=== PATIENT | male | born 1935 | race Hispanic/Latino ===

== ENCOUNTER 2018-10-18 19:14 | Inpatient (IN) | payer MEDICARE ==
--- NOTE | 2018-10-18 19:30 | Emergency Department Report ---
Blank Doc - Documentation Documentation: This is a 83-year-old male that presents with generalized weakness with confus ion x6-8 months. Denies facial drooping or one sided weakness. This initial assessment diagnostic orders/clinical plan/treatment(s) is/are subject to change based on patient's health status, clinical progression and re- assessment by fellow clinical providers in the ED. Further treatment and workup at subsequent clinical providers discretion. Patient/guardians urged not to elope from ED s their condition may be serious if not clinically assessed and managed. Initial orders include: 1-Patient sent to MAIN for further evaluation and treatment 2- labs 3- CT head 4- UA
[2018-10-18 20:13] LABS: Bacteria,Urine 4+ /HPF (Negative); Bilirubin,Urine NEG (Negative); Blood,Urine MOD (Negative); Color,Urine Amber (Yellow); Mucus,Urine 2+ /HPF
--- NOTE | 2018-10-18 20:32 | Cat Scan Report ---
FINAL REPORT PROCEDURE: CT HEAD/BRAIN WO CON TECHNIQUE: Computerized tomography of the head was performed without contrast material. HISTORY: Stroke symptoms COMPARISON: No prior studies are available for comparison. FINDINGS: Skull and scalp: Normal. Paranasal sinuses: Bilateral paranasal sinuses are clear. There is partial opacification of right mas toid air cells.. Ventricles and subarachnoid spaces: Are prominent. Ventricular prominence is out of proportion to the sulcal prominence.. Cerebrum: Moderate degree bilateral cerebral nonspecific white matter hypodensity is noted most likel y representing chronic microangiopathy. No acute intra-axial or extra-axial hemorrhage or mass effect is noted.. Cerebellum and brainstem: No evidence of hemorrhage, acute infarction or mass. Vasculature: Atherosclerotic calcification is noted involving internal carotid and vertebral arteries .. Comments: None. IMPRESSION: Ventricular prominence is out of proportion to the sulcal prominence. Normal pressure hydrocephalus c annot be excluded. Right mastoiditis
[2018-10-18 20:34] LABS: Basophils # (Auto) 0.1 K/mm3 (0.0-0.1); Basophils % (Auto) 0.8 % (0.0-1.8); Eosinophils # (Auto) 0.1 K/mm3 (0.0-0.4); Eosinophils % (Auto) 1.3 % (0.0-4.3); Hematocrit 37.9 % (35.5-45.6); Hemoglobin 12.9 gm/dl (11.8-15.2); Lymphocytes # (Auto) 1.3 K/mm3 (1.2-5.4); Lymphocytes % (Auto) 16.2 % (13.4-35.0); Mean Corpuscular HGB Conc 34 % (32-34); Mean Corpuscular Volume 89 fl (84-94); Monocytes # (Auto) 0.7 K/mm3 (0.0-0.8); Monocytes % (Auto) 8.9 % (0.0-7.3); Platelet Count 250 K/mm3 (140-440); Red Blood Count 4.24 M/mm3 (3.65-5.03); Red Cell Distribution Width 14.5 % (13.2-15.2)
[2018-10-18 20:45] LABS: INR 1.02 (0.87-1.13); Partial Thromboplastin Time 28.7 Sec. (24.2-36.6)
[2018-10-18 20:46] LABS: Thrombin Time 15.3 Sec. (15.1-19.6)
[2018-10-18 20:56] LABS: Creatine Kinase MB 1.4 ng/mL (0.0-4.0)
[2018-10-18 20:58] LABS: Alanine Aminotransferase 9 units/L (7-56); Albumin 4.1 g/dL (3.9-5); BUN/Creatinine Ratio 19; Blood Urea Nitrogen 32 mg/dL (9-20); Calcium 9.3 mg/dL (8.4-10.2); Hemolysis Index 6
--- NOTE | 2018-10-18 21:15 | Emergency Department Report ---
ED Neuro Deficit HPI - General Chief Complaint: Neuro Symptoms/Deficit Stated Complaint: NEURO ISSUES Time Seen by Provider: 10/18/18 19:27 Source: patient, family Mode of arrival: Wheelchair Limitations: Altered Mental Status - History of Present Illness Initial Comments: Patient is a 83 years old male with history of hypertension, diabetes and chronic kidney disease. Patient presented to the ER accompanied by his after he saw Dr. Latham today and he was diagnosed with UTI. Patient stated that patient is being confused for the last 4 days but his symptoms actually started in June of last year with dementia, weakness and urinary in continence and symptoms progressively getting worse. Patient denied any unilateral or focal weakness, numbness or tingling sensation. Patient denied any chest pain or shortness of breath. He reports chills. -: days(s) Location: other (weakness, confusion) Presenting Symptoms: Present: Altered Mental Status - Related Data Allergies/Adverse Reactions: Allergies Allergy/AdvReac Type Severity Reaction Status Date / Time No Known Allergies Allergy Verified 10/18/18 19:21 ED Review of Systems ROS: Stated complaint: NEURO ISSUES Other details as noted in HPI Comment: All other systems reviewed and negative Constitutional: denies: chills, fever Respiratory: denies: cough, orthopnea, shortness of breath, SOB with exertion, SOB at rest Cardiovascular: denies: chest pain, palpitations Gastrointestinal: denies: abdominal pain, nausea, vomiting, diarrhea, constipation, hematemesis, melena, hematochezia Musculoskeletal: denies: back pain Neurological: weakness, confusion, abnormal gait. denies: headache, numbness, paresthesias, vertigo, other ED Past Medical Hx - Past Medical History Hx Hypertension: Yes Hx Diabetes: Yes Hx Renal Disease: Yes (stage III) Additional medical history: enlarged prostate- indwelling cath - Surgical History Additional Surgical History: TURP,back, Tonsillectomy - Social History Smoking Status: Unknown if ever smoked Substance Use Type: None ED Neuro Physical Exam - General Limitations: Altered Mental Status General appearance: alert Suspected Stroke: Yes - Head Head exam: Present: atraumatic, normocephalic, normal inspection - Eye Eye exam: Present: normal appearance, PERRL - ENT ENT exam: Present: normal exam, normal orophraynx, mucous membranes moist - Neck Neck exam: Present: normal inspection, full ROM. Absent: tenderness, meningismus, lymphadenopathy, thyromegaly - Respiratory Respiratory exam: Present: normal lung sounds bilaterally. Absent: respiratory distress, wheezes, rales, rhonchi - Cardiovascular Cardiovascular Exam: Present: tachycardia - GI/Abdominal GI/Abdominal exam: Present: soft, normal bowel sounds. Absent: distended, tenderness, guarding, rebound, rigid - Extremities Exam Extremities exam: Present: normal inspection, full ROM, normal capillary refill. Absent: pedal edema, calf tenderness - Back Exam Back exam: Present: normal inspection, full ROM. Absent: CVA tenderness (R), CVA tenderness (L) - Neurological Exam Neurological exam: Present: alert, oriented X3, CN II-XII intact, abnormal gait - NIHSS Assessment Interval: Baseline 1a. Level of Consciousness: alert/keenly responsive 1b. LOC Questions: answers both correctly 1c. LOC Commands: performs tasks correctly 2. Best Gaze: normal 3. Visual: no visual loss 4. Facial Palsy: normal symmetrical movement 5b. Motor Arm Right: no drift 5a. Motor Arm Left: no drift 6a. Motor Leg Left: no drift 6b. Motor Leg Right: no drift 7. Limb Ataxia: absent 8. Sensory: normal 9. Best Language: no aphasia 10. Dysarthria: normal 11. Extinction/Inattention: no abnormality Total Score: 0 Stroke Severity: No Stroke Symptoms - Psychiatric Psychiatric exam: Present: normal mood - Skin Skin exam: Present: warm, intact, normal color ED Course Vital Signs 10/18/18 10/18/18 10/18/18 19:24 19:31 21:33 Temperature 98.0 F 98 F Pulse Rate 101 H 106 H 89 Respiratory 18 18 14 Rate Blood Pressure 122/78 122/78 O2 Sat by Pulse 97 97 Oximetry 10/18/18 21:45 Temperature Pulse Rate 87 Respiratory 18 Rate Blood Pressure 176/89 O2 Sat by Pulse 95 Oximetry - Consultations Consultation #1: 10/18/18 23:20 I discussed the patient is Dr. Piper, from telemetry neurology. She advised that patient can be many H as an outpatient for the normal pressure hydrocephalus and does not need acute treatment in the hospital for that. - Lab Data Result diagrams: 10/18/18 20:17 10/18/18 20:17 Lab Results 10/18/18 10/18/18 10/18/18 Range/Units 19:39 20:17 20:17 WBC 7.7 (4.5-11.0) K/mm3 RBC 4.24 (3.65-5.03) M/mm3 Hgb 12.9 (11.8-15.2) gm/dl Hct 37.9 (35.5-45.6) % MCV 89 (84-94) fl MCH 30 (28-32) pg MCHC 34 (32-34) % RDW 14.5 (13.2-15.2) % Plt Count 250 (140-440) K/mm3 Lymph % (Auto) 16.2 (13.4-35.0) % [place] % (Auto) 8.9 H (0.0-7.3) % Eos % (Auto) 1.3 (0.0-4.3) % Baso % (Auto) 0.8 (0.0-1.8) % Lymph # 1.3 (1.2-5.4) K/mm3 [place] # 0.7 (0.0-0.8) K/mm3 Eos # 0.1 (0.0-0.4) K/mm3 Baso # 0.1 (0.0-0.1) K/mm3 Seg Neutrophils % 72.8 H (40.0-70.0) % Seg Neutrophils # 5.6 (1.8-7.7) K/mm3 PT 14.0 (12.2-14.9) Sec. INR 1.02 (0.87-1.13) APTT 28.7 (24.2-36.6) Sec. Thrombin Time 15.3 (15.1-19.6) Sec. Sodium (137-145) mmol/L Potassium (3.6-5.0) mmol/L Chloride (98-107) mmol/L Carbon Dioxide (22-30) mmol/L Anion Gap mmol/L BUN (9-20) mg/dL Creatinine (0.8-1.5) mg/dL Estimated GFR ml/min BUN/Creatinine Ratio % Glucose (75-100) mg/dL Calcium (8.4-10.2) mg/dL Total Bilirubin (0.1-1.2) mg/dL AST (5-40) units/L ALT (7-56) units/L Alkaline Phosphatase (35-129) units/L Total Creatine Kinase (55-170) units/L CK-MB (CK-2) (0.0-4.0) ng/mL CK-MB (CK-2) Rel Index (0-4) Troponin T (0.00-0.029) ng/mL Total Protein (6.3-8.2) g/dL Albumin (3.9-5) g/dL Albumin/Globulin Ratio % Urine Color Ce (Yellow) Urine Turbidity Cloudy (Clear) Urine pH 5.0 (5.0-7.0) Ur Specific [place] 1.029 (1.003-1.030) Urine Protein 100 mg/dl (Negative) mg/dL Urine Glucose (UA) >=500 (Negative) mg/dL Urine Ketones Tr (Negative) mg/dL Urine Blood Mod (Negative) Urine Nitrite Pos (Negative) Urine Bilirubin Neg (Negative) Urine Urobilinogen 2.0 (<2.0) mg/dL Ur Leukocyte Esterase Lg (Negative) Urine WBC (Auto) 179.0 H (0.0-6.0) /HPF Urine RBC (Auto) 47.0 (0.0-6.0) /HPF U Epithel Cells (Auto) 1.0 (0-13.0) /HPF Urine Bacteria (Auto) 4+ (Negative) /HPF Ur Transition Epith Cell 1 /HPF Urine Mucus 2+ /HPF 10/18/18 Range/Units 20:17 WBC (4.5-11.0) K/mm3 RBC (3.65-5.03) M/mm3 Hgb (11.8-15.2) gm/dl Hct (35.5-45.6) % MCV (84-94) fl MCH (28-32) pg MCHC (32-34) % RDW (13.2-15.2) % Plt Count (140-440) K/mm3 Lymph % (Auto) (13.4-35.0) % [place] % (Auto) (0.0-7.3) % Eos % (Auto) (0.0-4.3) % Baso % (Auto) (0.0-1.8) % Lymph # (1.2-5.4) K/mm3 [place] # (0.0-0.8) K/mm3 Eos # (0.0-0.4) K/mm3 Baso # (0.0-0.1) K/mm3 Seg Neutrophils % (40.0-70.0) % Seg Neutrophils # (1.8-7.7) K/mm3 PT (12.2-14.9) Sec. INR (0.87-1.13) APTT (24.2-36.6) Sec. Thrombin Time (15.1-19.6) Sec. Sodium 140 (137-145) mmol/L Potassium 3.8 (3.6-5.0) mmol/L Chloride 99.0 (98-107) mmol/L Carbon Dioxide 23 (22-30) mmol/L Anion Gap 22 mmol/L BUN 32 H (9-20) mg/dL Creatinine 1.7 H (0.8-1.5) mg/dL Estimated GFR 39 ml/min BUN/Creatinine Ratio 19 % Glucose 403 H (75-100) mg/dL Calcium 9.3 (8.4-10.2) mg/dL Total Bilirubin 0.40 (0.1-1.2) mg/dL AST 11 (5-40) units/L ALT 9 (7-56) units/L Alkaline Phosphatase 90 (35-129) units/L Total Creatine Kinase 48 L (55-170) units/L CK-MB (CK-2) 1.4 (0.0-4.0) ng/mL CK-MB (CK-2) Rel Index 2.9 (0-4) Troponin T < 0.010 (0.00-0.029) ng/mL Total Protein 7.2 (6.3-8.2) g/dL Albumin 4.1 (3.9-5) g/dL Albumin/Globulin Ratio 1.3 % Urine Color (Yellow) Urine Turbidity (Clear) Urine pH (5.0-7.0) Ur Specific [place] (1.003-1.030) Urine Protein (Negative) mg/dL Urine Glucose (UA) (Negative) mg/dL Urine Ketones (Negative) mg/dL Urine Blood (Negative) Urine Nitrite (Negative) Urine Bilirubin (Negative) Urine Urobilinogen (<2.0) mg/dL Ur Leukocyte Esterase (Negative) Urine WBC (Auto) (0.0-6.0) /HPF Urine RBC (Auto) (0.0-6.0) /HPF U Epithel Cells (Auto) (0-13.0) /HPF Urine Bacteria (Auto) (Negative) /HPF Ur Transition Epith Cell /HPF Urine Mucus /HPF - Radiology Data Radiology results: report reviewed Referring Physician: JOHN PATEL Patient Name: COLEEN GOMEZ JR Date of : 1935 Sex: Male Report Date: 2018-10-18 Report Status: Finalized Findings [facility] [address] [place] [address] Cat Scan Report Signed Patient: COLEEN GOMEZ JR MR#: [id number] : 1935 Acct:[id number] Age/Sex: 83 / M ADM Date: 10/18/18 Loc: ED Attending Dr: Ordering Physician: JOHN PATEL NP Date of Service: 10/18/18 Procedure(s): CT head/brain wo con Accession Number(s): [id number] cc: OJHN PATEL NP FINAL REPORT PROCEDURE: CT HEAD/BRAIN WO CON TECHNIQUE: Computerized tomography of the head was performed without contrast material. HISTORY: Stroke symptoms COMPARISON: No prior studies are available for comparison. FINDINGS: Skull and scalp: Normal. Paranasal sinuses: Bilateral paranasal sinuses are clear. There is partial opacification of right mastoid air cells.. Ventricles and subarachnoid spaces: Are prominent. Ventricular prominence is out of proportion to the sulcal prominence.. Cerebrum: Moderate degree bilateral cerebral nonspecific white matter hypodensity is noted most likely representing chronic microangiopathy. No acute intra-axial or extra-axial hemorrhage or mass effect is noted.. Cerebellum and brainstem: No evidence of hemorrhage, acute infarction or mass. Vasculature: Atherosclerotic calcification is noted involving internal carotid and vertebral arteries.. Comments: None. IMPRESSION: Ventricular prominence is out of proportion to the sulcal prominence. Normal pressure hydrocephalus cannot be excluded. Right mastoiditis Transcribed By: [facility] Dictated By: AVELINA WADSWORTH Electronically Authenticated By: AVELINA WADSWORTH Signed Date/Time: 10/18/182031 DD/ 30 TD/TT: 10/18/182030 - Medical Decision Making I discussed the patient was Dr. Ezimora, she agreed to admit the patient to medical service. Critical care attestation.: If time is entered above; I have spent that time in minutes in the direct care of this critically ill patient, excluding procedure time. ED Disposition Clinical Impression: Altered mental status, UTI (urinary tract infection), Normal pressure hydrocephalus Disposition: OP ADMIT IP TO THIS HOSP Is pt being admited?: Yes Condition: Stable Referrals: DEREK GALVEZ MD [Staff Physician] - 3-5 Days
[2018-10-18] MEDS ORDERED: LEVAQUIN 500MG/100ML 500 MG/100 ML BAG IV ONE (21:26)
[2018-10-19] MEDS ORDERED: ZOFRAN IV PRN (00:08)
[2018-10-19] MEDS ORDERED: SODIUM CHLORIDE FLUSH SYRINGE 10 ML IV PRN (00:08)
[2018-10-19] MEDS ORDERED: D50W (25GM) Syringe IV PRN (00:12)
[2018-10-19] MEDS ORDERED: NACL 0.9% 1000 ML 1,000 ML IV ONE (00:17)
[2018-10-19] MEDS ORDERED: NORMODYNE IV PRN (00:18)
--- NOTE | 2018-10-19 00:38 | History and Physical Report ---
History of Present Illness Date of examination: 10/19/18 Chief complaint: Altered mental status per report History of present illness: Patient is a 83 years old male with history of hypertension, diabetes and chronic kidney disease, who was brought to the ED by his on account of altered mental status. Patient's was not present at the time of my history taking and patient is a very poor historian. Per the ER doctor, the stated that the patient has been confused for the last 4 days. According to her, his symptoms actually started in June of last year with dementia, weakness and urinary incontinence, which are progressively getting worse. No reported history of fever, nausea, vomiting, diarrhea, falls, syncope or loss of consciousness. Patient was seen at Dr. Latham's clinic today and he was diagnosed with UTI. Sandoval catheter was also placed as well. Past History Past Medical History: diabetes, hypertension, other (CRF) Past Surgical History: Other (unknown) Social history: other (patient admits to occasional alcohol use. 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 He denies illicit drug use) Family history: other (unknown) Medications and Allergies Allergies Allergy/AdvReac Type Severity Reaction Status Date / Time No Known Allergies Allergy Verified 10/18/18 19:21 Active Meds: Active Medications Acetaminophen (Tylenol) 650 mg PO Q4H PRN PRN Reason: Pain MILD(1-3)/Fever >100.5/FARRELL Amlodipine Besylate (Norvasc) 10 mg PO DAILY [facility] Carvedilol (Coreg) 25 mg PO BID [facility] Dextrose (D50w (25gm) Syringe) 50 ml IV PRN PRN PRN Reason: Hypoglycemia Docusate Sodium (Colace) 100 mg PO BID [facility] Heparin Sodium (Porcine) (Heparin) 5,000 unit SUB-Q Q12HR SALTY Ceftriaxone Sodium (Rocephin/Ns 1 Gm/50 Ml) 1 gm in 50 mls @ 100 mls/hr IV Q24HR SALTY; Protocol Sodium Chloride (Nacl 0.45% 1000 Ml) 1,000 mls @ 100 mls/hr IV DIRECT SALTY Sodium Chloride (Nacl 0.9% 1000 Ml) 1,000 mls @ 999 mls/hr IV BOLUS ONE Stop: 10/19/18 01:17 Insulin Glargine (Lantus) 20 units SUB-Q BID [facility] Insulin Human Lispro (Humalog) 0 unit SUB-Q ACHS SALTY; Protocol Labetalol HCl (Normodyne) 10 mg IV Q6H PRN PRN Reason: Blood Pressure Ondansetron HCl (Zofran) 4 mg IV Q8H PRN PRN Reason: Nausea And Vomiting Sodium Chloride (Sodium Chloride Flush Syringe 10 Ml) 10 ml IV BID SALTY Sodium Chloride (Sodium Chloride Flush Syringe 10 Ml) 10 ml IV PRN PRN PRN Reason: LINE FLUSH Review of Systems ROS unobtainable: due to mental status (altered mental status) All systems: negative Exam - Constitutional Vitals: Temp Pulse Resp BP Pulse Ox 98 F 97 H 15 181/95 97 10/18/18 19:31 10/18/18 23:30 10/18/18 23:30 10/18/18 23:30 10/18/18 23:30 General appearance: Present: no acute distress, well-nourished - EENT Eyes: Present: PERRL, EOM intact ENT: hearing intact, clear oral mucosa - Neck Neck: Present: supple, normal ROM - Respiratory Respiratory effort: normal Respiratory: bilateral: CTA - Cardiovascular Rhythm: regular Heart Sounds: Present: S1 & S2. Absent: rub, click - Extremities Extremities: No edema Peripheral Pulses: within normal limits - Abdominal General gastrointestinal: Present: soft, non-tender, non-distended, normal bowel sounds - Integumentary Integumentary: Present: clear, warm, dry - Musculoskeletal Musculoskeletal: generalized weakness - Neurologic Neurologic: CNII-XII intact, moves all extremities Results - Labs CBC & Chem 7: 10/18/18 20:17 10/18/18 20:17 Labs: Laboratory Last Values WBC 7.7 K/mm3 (4.5-11.0) 10/18/18 20:17 RBC 4.24 M/mm3 (3.65-5.03) 10/18/18 20:17 Hgb 12.9 gm/dl (11.8-15.2) 10/18/18 20:17 Hct 37.9 % (35.5-45.6) 10/18/18 20:17 MCV 89 fl (84-94) 10/18/18 20:17 MCH 30 pg (28-32) 10/18/18 20:17 MCHC 34 % (32-34) 10/18/18 20:17 RDW 14.5 % (13.2-15.2) 10/18/18 20:17 Plt Count 250 K/mm3 (140-440) 10/18/18 20:17 Lymph % (Auto) 16.2 % (13.4-35.0) 10/18/18 20:17 [place] % (Auto) 8.9 % (0.0-7.3) H 10/18/18 20:17 Eos % (Auto) 1.3 % (0.0-4.3) 10/18/18 20:17 Baso % (Auto) 0.8 % (0.0-1.8) 10/18/18 20:17 Lymph # 1.3 K/mm3 (1.2-5.4) 10/18/18 20:17 [place] # 0.7 K/mm3 (0.0-0.8) 10/18/18 20:17 Eos # 0.1 K/mm3 (0.0-0.4) 10/18/18 20:17 Baso # 0.1 K/mm3 (0.0-0.1) 10/18/18 20:17 Seg Neutrophils % 72.8 % (40.0-70.0) H 10/18/18 20:17 Seg Neutrophils # 5.6 K/mm3 (1.8-7.7) 10/18/18 20:17 PT 14.0 Sec. (12.2-14.9) 10/18/18 20:17 INR 1.02 (0.87-1.13) 10/18/18 20:17 APTT 28.7 Sec. (24.2-36.6) 10/18/18 20:17 Thrombin Time 15.3 Sec. (15.1-19.6) 10/18/18 20:17 Sodium 140 mmol/L (137-145) 10/18/18 20:17 Potassium 3.8 mmol/L (3.6-5.0) 10/18/18 20:17 Chloride 99.0 mmol/L (98-107) 10/18/18 20:17 Carbon Dioxide 23 mmol/L (22-30) 10/18/18 20:17 Anion Gap 22 mmol/L 10/18/18 20:17 BUN 32 mg/dL (9-20) H 10/18/18 20:17 Creatinine 1.7 mg/dL (0.8-1.5) H 10/18/18 20:17 Estimated GFR 39 ml/min 10/18/18 20:17 BUN/Creatinine Ratio 19 % 10/18/18 20:17 Glucose 403 mg/dL (75-100) H 10/18/18 20:17 POC Glucose 320 (70-105) H 10/18/18 19:24 Calcium 9.3 mg/dL (8.4-10.2) 10/18/18 20:17 Total Bilirubin 0.40 mg/dL (0.1-1.2) 10/18/18 20:17 AST 11 units/L (5-40) 10/18/18 20:17 ALT 9 units/L (7-56) 10/18/18 20:17 Alkaline Phosphatase 90 units/L (35-129) 10/18/18 20:17 Total Creatine Kinase 48 units/L (55-170) L 10/18/18 20:17 CK-MB (CK-2) 1.4 ng/mL (0.0-4.0) 10/18/18 20:17 CK-MB (CK-2) Rel Index 2.9 (0-4) 10/18/18 20:17 Troponin T < 0.010 ng/mL (0.00-0.029) 10/18/18 20:17 Total Protein 7.2 g/dL (6.3-8.2) 10/18/18 20:17 Albumin 4.1 g/dL (3.9-5) 10/18/18 20:17 Albumin/Globulin Ratio 1.3 % 10/18/18 20:17 Urine Color Ce (Yellow) 10/18/18 19:39 Urine Turbidity Cloudy (Clear) 10/18/18 19:39 Urine pH 5.0 (5.0-7.0) 10/18/18 19:39 Ur Specific [place] 1.029 (1.003-1.030) 10/18/18 19:39 Urine Protein 100 mg/dl mg/dL (Negative) 10/18/18 19:39 Urine Glucose (UA) >=500 mg/dL (Negative) 10/18/18 19:39 Urine Ketones Tr mg/dL (Negative) 10/18/18 19:39 Urine Blood Mod (Negative) 10/18/18 19:39 Urine Nitrite Pos (Negative) 10/18/18 19:39 Urine Bilirubin Neg (Negative) 10/18/18 19:39 Urine Urobilinogen 2.0 mg/dL (<2.0) 10/18/18 19:39 Ur Leukocyte Esterase Lg (Negative) 10/18/18 19:39 Urine WBC (Auto) 179.0 /HPF (0.0-6.0) H 10/18/18 19:39 Urine RBC (Auto) 47.0 /HPF (0.0-6.0) 10/18/18 19:39 U Epithel Cells (Auto) 1.0 /HPF (0-13.0) 10/18/18 19:39 Urine Bacteria (Auto) 4+ /HPF (Negative) 10/18/18 19:39 Ur Transition Epith Cell 1 /HPF 10/18/18 19:39 Urine Mucus 2+ /HPF 10/18/18 19:39 Assessment and Plan Assessment and plan: Urinary tract infection -On IV antibiotic -Urine culture pending Acute metabolic encephalopathy -probably 2/2 UTI Uncontrolled hypertension -On antihypertensives, will monitor DM2 with hyperglycemia -on IV fluid, Lantus and SSI -will check hba1c level Probable normal pressure hydrocephalus per imaging -Neurology consulted CKD stage III -Creatinine level at baseline History of dementia, stable DVT prophylaxis with heparin Disposition: patient will be placed on inpatient status with plan for discharge in 2-3 days if clinically stable Time spent: 38 minutes
[2018-10-19] MEDS ORDERED: NACL 0.45% 1000 ML 1,000 ML IV SCH (01:00)
[2018-10-19] MEDS ORDERED: NORVASC ONE (01:05)
[2018-10-19] MEDS ORDERED: NACL 0.9% 1000 ML 1,000 ML ONE (01:05)
[2018-10-19] MEDS: LANTUS SUB-Q SCH ×3 (02:05→22:07)
[2018-10-19] MEDS: NORVASC PO SCH ×2 (02:13→10:15)
[2018-10-19] MEDS: COREG PO SCH ×3 (02:21→22:06)
[2018-10-19] MEDS ORDERED: COREG ONE (02:22)
[2018-10-19] MEDS: COLACE PO SCH ×2 (10:14→22:06)
[2018-10-19] MEDS: ROCEPHIN/NS 1 GM/50 ML 1 GM/50 ML BAG IV SCH (10:58)
[2018-10-19] MEDS: SODIUM CHLORIDE FLUSH SYRINGE 10 ML IV SCH ×2 (10:58→22:07)
[2018-10-19] MEDS: HEPARIN SUB-Q SCH ×2 (11:08→22:06)
[2018-10-19] MEDS: HumaLOG SUB-Q SCH ×4 (11:11→22:11)
--- NOTE | 2018-10-19 15:57 | Event Note ---
Date: 10/19/18 Patient was seen and evaluated this morning, patient's confusion resolved. She was admitted earlier if morning for the management of UTI, hydrocephalus, confusion. Neurology consulted. I ordered a repeat CT scan to evaluate for hydrocephalus. continue management per H&P.
--- NOTE | 2018-10-19 17:24 | Consultation ---
History of Present Illness Consult date: 10/19/18 Chief complaint: abnormal CT head, dementia, incontinence History of present illness: This is an 83 YO M who was admitted to the hospital for AMS. Found to have a UTI. Pt also with ? urinary retention and had hamm catheter placed. No family at bedside so most history is as per notes. Per notes says pt has been having incontinence, dementia and ataxia since June. CT shows venticriculomegaly out of proportion to sulcal prominence so NPH was entertained. Past History Past Medical History: diabetes, hypertension, other (CRF) Past Surgical History: Other (unknown) Social history: other (patient admits to occasional alcohol use. 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 He denies illicit drug use) Family history: other (unknown) Medications and Allergies Allergies Allergy/AdvReac Type Severity Reaction Status Date / Time No Known Allergies Allergy Verified 10/18/18 19:21 Home Medications Medication Instructions Recorded Confirmed Last Taken Type Donepezil 5 mg PO DAILY 10/19/18 10/19/18 Unknown History Gabapentin 300 mg PO BID 10/19/18 10/19/18 Unknown History Losartan 100 mg PO DAILY 10/19/18 10/19/18 Unknown History Ozempic 1 mg SQ 1XW 10/19/18 10/19/18 Unknown History Pioglitazone 15 mg PO DAILY 10/19/18 10/19/18 Unknown History hydrALAZINE 50 mg PO BID 10/19/18 10/19/18 Unknown History Active Meds: Active Medications Acetaminophen (Tylenol) 650 mg PO Q4H PRN PRN Reason: Pain MILD(1-3)/Fever >100.5/FARRELL Amlodipine Besylate (Norvasc) 10 mg PO DAILY [facility] Last Admin: 10/19/18 10:15 Dose: Not Given Documented by: Carvedilol (Coreg) 25 mg PO BID [facility] Last Admin: 10/19/18 10:14 Dose: Not Given Documented by: Dextrose (D50w (25gm) Syringe) 50 ml IV PRN PRN PRN Reason: Hypoglycemia Docusate Sodium (Colace) 100 mg PO BID [facility] Last Admin: 10/19/18 10:14 Dose: Not Given Documented by: Heparin Sodium (Porcine) (Heparin) 5,000 unit SUB-Q Q12HR [facility] Last Admin: 10/19/18 11:08 Dose: 5,000 unit Documented by: Ceftriaxone Sodium (Rocephin/Ns 1 Gm/50 Ml) 1 gm in 50 mls @ 100 mls/hr IV Q24HR [facility]; Protocol Last Admin: 10/19/18 10:58 Dose: 100 mls/hr Documented by: Sodium Chloride (Nacl 0.45% 1000 Ml) 1,000 mls @ 100 mls/hr IV DIRECT SALTY Insulin Glargine (Lantus) 20 units SUB-Q BID [facility] Last Admin: 10/19/18 11:10 Dose: 20 units Documented by: Insulin Human Lispro (Humalog) 0 unit SUB-Q ACHS [facility]; Protocol Last Admin: 10/19/18 16:11 Dose: 3 unit Documented by: Labetalol HCl (Normodyne) 10 mg IV Q6H PRN PRN Reason: Blood Pressure Ondansetron HCl (Zofran) 4 mg IV Q8H PRN PRN Reason: Nausea And Vomiting Sodium Chloride (Sodium Chloride Flush Syringe 10 Ml) 10 ml IV BID [facility] Last Admin: 10/19/18 10:58 Dose: 10 ml Documented by: Sodium Chloride (Sodium Chloride Flush Syringe 10 Ml) 10 ml IV PRN PRN PRN Reason: LINE FLUSH Review of Systems Neurological: ataxia Physical Examination - Vital Signs Vital Signs: Vital Signs Temp Pulse Resp BP Pulse Ox 98.0 F 101 H 18 122/78 97 10/18/18 19:24 10/18/18 19:24 10/18/18 19:24 10/18/18 19:24 10/18/18 19:24 - Constitutional General appearance: comfortable - EENT EENT: Present: PERRL, mucous membranes moist - Respiratory Respiratory: Present: lungs clear - Cardiovascular Cardiovascular: Present: regular rate Extremities: Present: no peripheral edema bilatateraly - Gastrointestinal Gastrointestinal: Present: normoactive bowel sounds - Neurologic Cranial nerve examination: PERRL, EOMI, VFF, V1/V2/V3 grossly intact, face symmetric, tongue midline Speech examination: intact Motor examination - right side: 5/5: biceps, triceps, wrist flexion, wrist extension, retinal angiographer, hip flexors, knee extensors, dorsiflexion, toe extension (EHL), plantarflexion Motor examination - left side: 5/5: biceps, triceps, wrist flexion, wrist extension, retinal angiographer, hip flexors, knee extensors, dorsiflexion, toe extension (EHL), plantarflexion Detailed sensory examination: light touch, temperature Reflexes: 1+: ankle, bicep, knee, tricep Cerebellar examination: other (FNF intact) - Psychiatric Psychiatric: Present: mood/affect appropriate - Assessment Assessment Interval: Baseline - Level of Consciousness 1a. Level of Consciousness: alert/keenly responsive - LOC Questions 1b. LOC Questions: answers both correctly - LOC Command 1c. LOC Commands: performs tasks correctly - Best Gaze 2. Best Gaze: normal - Visual 3. Visual: no visual loss - Facial Palsy 4. Facial Palsy: normal symmetrical movement - Motor Arm 5b. Motor Arm Right: no drift - Motor Leg 6a. Motor Leg Left: no drift - Limb Ataxia 7. Limb Ataxia: absent - Sensory 8. Sensory: normal - Best Language 9. Best Language: no aphasia - Dysarthria 10. Dysarthria: normal - Extinction and Inattention 11. Extinction/Inattention: no abnormality Results - Laboratory Findings CBC and BMP: 10/18/18 20:17 10/18/18 20:17 Abnormal Lab Findings: Abnormal Labs 10/18/18 10/18/18 10/18/18 19:24 19:39 20:17 [place] % (Auto) 8.9 H Seg Neutrophils % 72.8 H BUN Creatinine Glucose POC Glucose 320 H Total Creatine Kinase Urine WBC (Auto) 179.0 H 10/18/18 10/19/18 10/19/18 20:17 08:01 11:42 [place] % (Auto) Seg Neutrophils % BUN 32 H Creatinine 1.7 H Glucose 403 H POC Glucose 232 H 224 H Total Creatine Kinase 48 L Urine WBC (Auto) 10/19/18 16:45 [place] % (Auto) Seg Neutrophils % BUN Creatinine Glucose POC Glucose 225 H Total Creatine Kinase Urine WBC (Auto) - Diagnostic Findings Additional findings: CT head microangiopathic changes, ventricular prominence Assessment and Plan This is an 83 YO M with dementia, ataxia and urinary incontinence, r/o normal pressure hydrocephalus. Recommend: This is a diagnosis best pursued with outpatient work up, especially need to wait until UTI clears. Treatment for this condition would be with SLING OPERATOR shunt and he would need neurosurgical eval. Decrease in fluid tends to help gait only so if gait is not overly problematic might not be the best shunt candidate. Have patient follow up with neurology outpatient once his current issues stabilize and they can coordinate with neurosurgery to see if this patient is appropriate for treatment with shunt PT/OT eval while in house would also be helpful-eval for "magnetic gait" Continue care for all medical issues as you are doing Call with questions.
[2018-10-20] MEDS: HumaLOG SUB-Q SCH ×3 (07:20→17:07)
[2018-10-20 07:38] LABS: Basophils # (Auto) 0.1 K/mm3 (0.0-0.1); Basophils % (Auto) 1.1 % (0.0-1.8); Eosinophils # (Auto) 0.4 K/mm3 (0.0-0.4); Lymphocytes # (Auto) 1.5 K/mm3 (1.2-5.4); Lymphocytes % (Auto) 19.5 % (13.4-35.0); Mean Corpuscular HGB Conc 34 % (32-34); Mean Corpuscular Volume 89 fl (84-94); Monocytes # (Auto) 0.7 K/mm3 (0.0-0.8); Monocytes % (Auto) 9.6 % (0.0-7.3); Platelet Count 225 K/mm3 (140-440); Red Cell Distribution Width 14.3 % (13.2-15.2)
[2018-10-20 08:04] LABS: Calcium 9.3 mg/dL (8.4-10.2)
[2018-10-20] MEDS: ROCEPHIN/NS 1 GM/50 ML 1 GM/50 ML BAG IV SCH (09:23)
[2018-10-20] MEDS: HEPARIN SUB-Q SCH ×2 (09:33→22:56)
[2018-10-20] MEDS: COLACE PO SCH ×2 (09:33→22:55)
[2018-10-20] MEDS: COREG PO SCH ×2 (09:35→22:55)
[2018-10-20] MEDS: NORVASC PO SCH (09:36)
[2018-10-20] MEDS: LANTUS SUB-Q SCH ×2 (09:40→22:58)
[2018-10-20] MEDS: SODIUM CHLORIDE FLUSH SYRINGE 10 ML IV SCH (09:40)
--- NOTE | 2018-10-20 09:52 | Cat Scan Report ---
CT HEAD WITHOUT CONTRAST: HISTORY: Followup hydrocephalus. TECHNIQUE: Sequential CT images without contrast. FINDINGS: Mild prominence of the lateral and third ventricles are unchanged since 10/18/18. The fourth ventricle appears normal dimensions. Nonspecific chronic white matter changes are also stable. There is mild cortical volume loss in the temporal lobes but no advanced diffuse volume loss. No evidence for hemorrhage, mass or acute ischemia. No extra-axial fluid collection. The sinuses and left mastoid air cells are well-aerated. There is partial opacification of the right mastoid air cells. IMPRESSION: No change.
[2018-10-20] MEDS ORDERED: K-DUR PO ONE (11:45)
--- NOTE | 2018-10-20 13:04 | Magnetic Resonance Report ---
MRI BRAIN WITHOUT CONTRAST: 10/20/18 CLINICAL: Hydrocephalus. TECHNIQUE: Axial diffusion, T1, T2, gradient echo T2*, coronal and axial FLAIR and sagittal T1 sequences on a 1.5 Celeste magnet. FINDINGS: Moderate diffuse ventricular enlargement which is out of proportion to sulcal enlargement. The frontal and temporal lobe sulci are larger than the rest. No restricted diffusion. Moderate bilateral periventricular white matter hyperintensities FLAIR and T2. No mass or mass effect. No hemorrhage, edema or extra-axial collection. Normal pituitary and optic chiasm. The brainstem and cerebellum are normal. Intact vascular flow voids. Mild bilateral ethmoid sinusitis. No air-fluid levels. Right mastoid air cells are filled with fluid. No bony erosion. The orbits, and soft tissues are normal. Normal calvarium and skull base. IMPRESSION: 1. 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 2. Moderate frontotemporal cortical atrophy. 3. No evidence of acute/subacute infarct or hemorrhage. 4. Chronic right mastoiditis and mild bilateral ethmoid sinusitis.
--- NOTE | 2018-10-20 14:20 | Progress Note ---
Assessment and Plan Assessment and plan: Normal pressure hydrocephalus - Patient had confusion, ataxia and urinary incontinence - CT head showed hydrocephalus - Evaluated by neurology and recommended outpatient neurology follow-up, if the symptoms are worsened he need out patient f/u and possible arrangement for neurosurgery evaluation. Currently the symptoms are not worse and doesn't need shunt at this time. - Fluid restriction - PT evaluation UTI - Continue IV antibiotics DVT prophylaxis - On heparin Disposition - Possible discharge tomorrow History Interval history: patient was seen and evaluated this morning, patient didn't have any new complaints. Hospitalist Physical - Physical exam Narrative exam: Not in cardiopulmonary distress. The patient appeared well nourished and normally developed. Vital signs as documented. Head exam is unremarkable. No scleral icterus . Neck is without jugular venous distension, thyromegaly, or carotid bruits. Lungs are clear to auscultation. Cardiac exam reveals regular rate and Rhythm. First and second heart sounds normal. No murmurs, rubs or gallops. Abdominal exam reveals normal bowel sounds, no masses, no organomegaly and no aortic enlargement. Extremities are nonedematous and both femoral and pedal pulses are normal. 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 No focal weakness. - Constitutional Vitals: Temp Pulse Resp BP Pulse Ox 98.4 F 73 18 157/94 97 10/20/18 07:14 10/20/18 09:35 10/20/18 07:14 10/20/18 09:35 10/20/18 09:43 General appearance: Present: no acute distress, well-nourished Results - Labs CBC & Chem 7: 10/20/18 07:04 10/20/18 07:04 Labs: Laboratory Last Values WBC 7.4 K/mm3 (4.5-11.0) 10/20/18 07:04 RBC 4.30 M/mm3 (3.65-5.03) 10/20/18 07:04 Hgb 13.0 gm/dl (11.8-15.2) 10/20/18 07:04 Hct 38.0 % (35.5-45.6) 10/20/18 07:04 MCV 89 fl (84-94) 10/20/18 07:04 MCH 30 pg (28-32) 10/20/18 07:04 MCHC 34 % (32-34) 10/20/18 07:04 RDW 14.3 % (13.2-15.2) 10/20/18 07:04 Plt Count 225 K/mm3 (140-440) 10/20/18 07:04 Lymph % (Auto) 19.5 % (13.4-35.0) 10/20/18 07:04 [place] % (Auto) 9.6 % (0.0-7.3) H 10/20/18 07:04 Eos % (Auto) 5.0 % (0.0-4.3) H 10/20/18 07:04 Baso % (Auto) 1.1 % (0.0-1.8) 10/20/18 07:04 Lymph # 1.5 K/mm3 (1.2-5.4) 10/20/18 07:04 [place] # 0.7 K/mm3 (0.0-0.8) 10/20/18 07:04 Eos # 0.4 K/mm3 (0.0-0.4) 10/20/18 07:04 Baso # 0.1 K/mm3 (0.0-0.1) 10/20/18 07:04 Seg Neutrophils % 64.8 % (40.0-70.0) 10/20/18 07:04 Seg Neutrophils # 4.8 K/mm3 (1.8-7.7) 10/20/18 07:04 PT 14.0 Sec. (12.2-14.9) 10/18/18 20:17 INR 1.02 (0.87-1.13) 10/18/18 20:17 APTT 28.7 Sec. (24.2-36.6) 10/18/18 20:17 Thrombin Time 15.3 Sec. (15.1-19.6) 10/18/18 20:17 Sodium 143 mmol/L (137-145) 10/20/18 07:04 Potassium 3.2 mmol/L (3.6-5.0) L 10/20/18 07:04 Chloride 104.9 mmol/L (98-107) 10/20/18 07:04 Carbon Dioxide 23 mmol/L (22-30) 10/20/18 07:04 Anion Gap 18 mmol/L 10/20/18 07:04 BUN 30 mg/dL (9-20) H 10/20/18 07:04 Creatinine 1.5 mg/dL (0.8-1.5) 10/20/18 07:04 Estimated GFR 45 ml/min 10/20/18 07:04 BUN/Creatinine Ratio 20 % 10/20/18 07:04 Glucose 129 mg/dL (75-100) H 10/20/18 07:04 POC Glucose 194 (70-105) H 10/20/18 11:30 Hemoglobin A1c 8.0 % (4-6) H 10/20/18 07:04 Calcium 9.3 mg/dL (8.4-10.2) 10/20/18 07:04 Total Bilirubin 0.40 mg/dL (0.1-1.2) 10/18/18 20:17 AST 11 units/L (5-40) 10/18/18 20:17 ALT 9 units/L (7-56) 10/18/18 20:17 Alkaline Phosphatase 90 units/L (35-129) 10/18/18 20:17 Total Creatine Kinase 48 units/L (55-170) L 10/18/18 20:17 CK-MB (CK-2) 1.4 ng/mL (0.0-4.0) 10/18/18 20:17 CK-MB (CK-2) Rel Index 2.9 (0-4) 10/18/18 20:17 Troponin T < 0.010 ng/mL (0.00-0.029) 10/18/18 20:17 Total Protein 7.2 g/dL (6.3-8.2) 10/18/18 20:17 Albumin 4.1 g/dL (3.9-5) 10/18/18 20:17 Albumin/Globulin Ratio 1.3 % 10/18/18 20:17 Urine Color Ce (Yellow) 10/18/18 19:39 Urine Turbidity Cloudy (Clear) 10/18/18 19:39 Urine pH 5.0 (5.0-7.0) 10/18/18 19:39 Ur Specific [place] 1.029 (1.003-1.030) 10/18/18 19:39 Urine Protein 100 mg/dl mg/dL (Negative) 10/18/18 19:39 Urine Glucose (UA) >=500 mg/dL (Negative) 10/18/18 19:39 Urine Ketones Tr mg/dL (Negative) 10/18/18 19:39 Urine Blood Mod (Negative) 10/18/18 19:39 Urine Nitrite Pos (Negative) 10/18/18 19:39 Urine Bilirubin Neg (Negative) 10/18/18 19:39 Urine Urobilinogen 2.0 mg/dL (<2.0) 10/18/18 19:39 Ur Leukocyte Esterase Lg (Negative) 10/18/18 19:39 Urine WBC (Auto) 179.0 /HPF (0.0-6.0) H 10/18/18 19:39 Urine RBC (Auto) 47.0 /HPF (0.0-6.0) 10/18/18 19:39 U Epithel Cells (Auto) 1.0 /HPF (0-13.0) 10/18/18 19:39 Urine Bacteria (Auto) 4+ /HPF (Negative) 10/18/18 19:39 Ur Transition Epith Cell 1 /HPF 10/18/18 19:39 Urine Mucus 2+ /HPF 10/18/18 19:39
[2018-10-20] MEDS ORDERED: PAXIL ONE (21:50)
[2018-10-21 05:12] LABS: Calcium 8.9 mg/dL (8.4-10.2)
[2018-10-21] MEDS: HumaLOG SUB-Q SCH ×5 (05:13→23:00)
[2018-10-21] MEDS: HEPARIN SUB-Q SCH ×2 (09:38→23:00)
[2018-10-21] MEDS: NORVASC PO SCH (09:38)
[2018-10-21] MEDS: COLACE PO SCH ×2 (09:38→22:59)
[2018-10-21] MEDS: COREG PO SCH ×2 (09:38→22:59)
[2018-10-21] MEDS: ROCEPHIN/NS 1 GM/50 ML 1 GM/50 ML BAG IV SCH (09:39)
[2018-10-21] MEDS: LANTUS SUB-Q SCH ×2 (09:40→23:01)
[2018-10-21] MEDS: SODIUM CHLORIDE FLUSH SYRINGE 10 ML IV SCH ×2 (09:42→23:00)
--- NOTE | 2018-10-21 14:49 | Progress Note ---
Assessment and Plan Assessment and plan: Normal pressure hydrocephalus - Patient had confusion, ataxia and urinary incontinence - CT head showed hydrocephalus - Evaluated by neurology and recommended outpatient neurology follow-up, if the symptoms are worsened he need out patient f/u and possible arrangement for neurosurgery evaluation. Currently the symptoms are not worse and doesn't need shunt at this time. - Fluid restriction - PT evaluation UTI - Continue IV antibiotics Chronic renal failure stage 3 - Monitor - stable at baseline DVT prophylaxis - On heparin Disposition - Patient need rehab, discussed with CM and working on it. History Interval history: patient was seen and evaluated this morning, patient didn't have any new complaints. Hospitalist Physical - Physical exam Narrative exam: Not in cardiopulmonary distress. The patient appeared well nourished and normally developed. Vital signs as documented. Head exam is unremarkable. No scleral icterus . Neck is without jugular venous distension, thyromegaly, or carotid bruits. Lungs are clear to auscultation. Cardiac exam reveals regular rate and Rhythm. First and second heart sounds normal. No murmurs, rubs or gallops. Abdominal exam reveals normal bowel sounds, no masses, no organomegaly and no aortic enlargement. Extremities are nonedematous and both femoral and pedal pulses are normal. 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 No focal weakness. - Constitutional Vitals: Temp Pulse Resp BP Pulse Ox 97.3 F L 66 18 105/62 94 10/21/18 13:52 10/21/18 13:52 10/21/18 13:52 10/21/18 13:52 10/21/18 13:52 General appearance: Present: no acute distress, well-nourished Results - Labs CBC & Chem 7: 10/20/18 07:04 10/21/18 04:09 Labs: Laboratory Last Values WBC 7.4 K/mm3 (4.5-11.0) 10/20/18 07:04 RBC 4.30 M/mm3 (3.65-5.03) 10/20/18 07:04 Hgb 13.0 gm/dl (11.8-15.2) 10/20/18 07:04 Hct 38.0 % (35.5-45.6) 10/20/18 07:04 MCV 89 fl (84-94) 10/20/18 07:04 MCH 30 pg (28-32) 10/20/18 07:04 MCHC 34 % (32-34) 10/20/18 07:04 RDW 14.3 % (13.2-15.2) 10/20/18 07:04 Plt Count 225 K/mm3 (140-440) 10/20/18 07:04 Lymph % (Auto) 19.5 % (13.4-35.0) 10/20/18 07:04 [place] % (Auto) 9.6 % (0.0-7.3) H 10/20/18 07:04 Eos % (Auto) 5.0 % (0.0-4.3) H 10/20/18 07:04 Baso % (Auto) 1.1 % (0.0-1.8) 10/20/18 07:04 Lymph # 1.5 K/mm3 (1.2-5.4) 10/20/18 07:04 [place] # 0.7 K/mm3 (0.0-0.8) 10/20/18 07:04 Eos # 0.4 K/mm3 (0.0-0.4) 10/20/18 07:04 Baso # 0.1 K/mm3 (0.0-0.1) 10/20/18 07:04 Seg Neutrophils % 64.8 % (40.0-70.0) 10/20/18 07:04 Seg Neutrophils # 4.8 K/mm3 (1.8-7.7) 10/20/18 07:04 PT 14.0 Sec. (12.2-14.9) 10/18/18 20:17 INR 1.02 (0.87-1.13) 10/18/18 20:17 APTT 28.7 Sec. (24.2-36.6) 10/18/18 20:17 Thrombin Time 15.3 Sec. (15.1-19.6) 10/18/18 20:17 Sodium 144 mmol/L (137-145) 10/21/18 04:09 Potassium 3.6 mmol/L (3.6-5.0) 10/21/18 04:09 Chloride 107.6 mmol/L (98-107) H 10/21/18 04:09 Carbon Dioxide 21 mmol/L (22-30) L 10/21/18 04:09 Anion Gap 19 mmol/L 10/21/18 04:09 BUN 33 mg/dL (9-20) H 10/21/18 04:09 Creatinine 1.6 mg/dL (0.8-1.5) H 10/21/18 04:09 Estimated GFR 41 ml/min 10/21/18 04:09 BUN/Creatinine Ratio 21 % 10/21/18 04:09 Glucose 157 mg/dL (75-100) H 10/21/18 04:09 POC Glucose 144 (70-105) H 10/21/18 07:30 Hemoglobin A1c 8.0 % (4-6) H 10/20/18 07:04 Calcium 8.9 mg/dL (8.4-10.2) 10/21/18 04:09 Total Bilirubin 0.40 mg/dL (0.1-1.2) 10/18/18 20:17 AST 11 units/L (5-40) 10/18/18 20:17 ALT 9 units/L (7-56) 10/18/18 20:17 Alkaline Phosphatase 90 units/L (35-129) 10/18/18 20:17 Total Creatine Kinase 48 units/L (55-170) L 10/18/18 20:17 CK-MB (CK-2) 1.4 ng/mL (0.0-4.0) 10/18/18 20:17 CK-MB (CK-2) Rel Index 2.9 (0-4) 10/18/18 20:17 Troponin T < 0.010 ng/mL (0.00-0.029) 10/18/18 20:17 Total Protein 7.2 g/dL (6.3-8.2) 10/18/18 20:17 Albumin 4.1 g/dL (3.9-5) 10/18/18 20:17 Albumin/Globulin Ratio 1.3 % 10/18/18 20:17 Urine Color Ce (Yellow) 10/18/18 19:39 Urine Turbidity Cloudy (Clear) 10/18/18 19:39 Urine pH 5.0 (5.0-7.0) 10/18/18 19:39 Ur Specific [place] 1.029 (1.003-1.030) 10/18/18 19:39 Urine Protein 100 mg/dl mg/dL (Negative) 10/18/18 19:39 Urine Glucose (UA) >=500 mg/dL (Negative) 10/18/18 19:39 Urine Ketones Tr mg/dL (Negative) 10/18/18 19:39 Urine Blood Mod (Negative) 10/18/18 19:39 Urine Nitrite Pos (Negative) 10/18/18 19:39 Urine Bilirubin Neg (Negative) 10/18/18 19:39 Urine Urobilinogen 2.0 mg/dL (<2.0) 10/18/18 19:39 Ur Leukocyte Esterase Lg (Negative) 10/18/18 19:39 Urine WBC (Auto) 179.0 /HPF (0.0-6.0) H 10/18/18 19:39 Urine RBC (Auto) 47.0 /HPF (0.0-6.0) 10/18/18 19:39 U Epithel Cells (Auto) 1.0 /HPF (0-13.0) 10/18/18 19:39 Urine Bacteria (Auto) 4+ /HPF (Negative) 10/18/18 19:39 Ur Transition Epith Cell 1 /HPF 10/18/18 19:39 Urine Mucus 2+ /HPF 10/18/18 19:39
[2018-10-22] MEDS: HumaLOG SUB-Q SCH ×4 (07:32→23:19)
[2018-10-22] MEDS: COREG PO SCH ×2 (09:29→21:38)
[2018-10-22] MEDS: COLACE PO SCH ×2 (09:29→21:37)
[2018-10-22] MEDS: SODIUM CHLORIDE FLUSH SYRINGE 10 ML IV SCH ×2 (09:30→23:25)
[2018-10-22] MEDS: HEPARIN SUB-Q SCH ×2 (09:30→21:38)
[2018-10-22] MEDS: NORVASC PO SCH (09:30)
[2018-10-22] MEDS: ROCEPHIN/NS 1 GM/50 ML 1 GM/50 ML BAG IV SCH (09:31)
[2018-10-22] MEDS: LANTUS SUB-Q SCH ×2 (09:31→23:22)
--- NOTE | 2018-10-22 12:33 | Progress Note ---
Assessment and Plan Assessment and plan: Normal pressure hydrocephalus - Patient had confusion, ataxia and urinary incontinence - CT head showed hydrocephalus - Evaluated by neurology and recommended outpatient neurology follow-up, if the symptoms are worsened he need out patient f/u and possible arrangement for neurosurgery evaluation. Currently the symptoms are not worse and doesn't need shunt at this time. - Fluid restriction - PT evaluation Confusion is due to NPH UTI - Continue IV antibiotics Chronic renal failure stage 3 - Monitor - stable at baseline DVT prophylaxis - On heparin Disposition - Pending insurance authorization for rehabilitation placement History Interval history: patient was seen and evaluated this morning, patient didn't have any new complaints. Hospitalist Physical - Physical exam Narrative exam: Not in cardiopulmonary distress. The patient appeared well nourished and normally developed. Vital signs as documented. Head exam is unremarkable. No scleral icterus . Neck is without jugular venous distension, thyromegaly, or carotid bruits. Lungs are clear to auscultation. Cardiac exam reveals regular rate and Rhythm. First and second heart sounds normal. No murmurs, rubs or gallops. Abdominal exam reveals normal bowel sounds, no masses, no organomegaly and no aortic enlargement. Extremities are nonedematous and both femoral and pedal pulses are normal. 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 No focal weakness. - Constitutional Vitals: Temp Pulse Resp BP Pulse Ox 98.6 F 65 20 157/76 94 10/22/18 07:28 10/22/18 09:29 10/22/18 07:28 10/22/18 09:29 10/22/18 07:28 General appearance: Present: no acute distress, well-nourished Results - Labs CBC & Chem 7: 10/20/18 07:04 10/21/18 04:09 Labs: Laboratory Last Values WBC 7.4 K/mm3 (4.5-11.0) 10/20/18 07:04 RBC 4.30 M/mm3 (3.65-5.03) 10/20/18 07:04 Hgb 13.0 gm/dl (11.8-15.2) 10/20/18 07:04 Hct 38.0 % (35.5-45.6) 10/20/18 07:04 MCV 89 fl (84-94) 10/20/18 07:04 MCH 30 pg (28-32) 10/20/18 07:04 MCHC 34 % (32-34) 10/20/18 07:04 RDW 14.3 % (13.2-15.2) 10/20/18 07:04 Plt Count 225 K/mm3 (140-440) 10/20/18 07:04 Lymph % (Auto) 19.5 % (13.4-35.0) 10/20/18 07:04 [place] % (Auto) 9.6 % (0.0-7.3) H 10/20/18 07:04 Eos % (Auto) 5.0 % (0.0-4.3) H 10/20/18 07:04 Baso % (Auto) 1.1 % (0.0-1.8) 10/20/18 07:04 Lymph # 1.5 K/mm3 (1.2-5.4) 10/20/18 07:04 [place] # 0.7 K/mm3 (0.0-0.8) 10/20/18 07:04 Eos # 0.4 K/mm3 (0.0-0.4) 10/20/18 07:04 Baso # 0.1 K/mm3 (0.0-0.1) 10/20/18 07:04 Seg Neutrophils % 64.8 % (40.0-70.0) 10/20/18 07:04 Seg Neutrophils # 4.8 K/mm3 (1.8-7.7) 10/20/18 07:04 PT 14.0 Sec. (12.2-14.9) 10/18/18 20:17 INR 1.02 (0.87-1.13) 10/18/18 20:17 APTT 28.7 Sec. (24.2-36.6) 10/18/18 20:17 Thrombin Time 15.3 Sec. (15.1-19.6) 10/18/18 20:17 Sodium 144 mmol/L (137-145) 10/21/18 04:09 Potassium 3.6 mmol/L (3.6-5.0) 10/21/18 04:09 Chloride 107.6 mmol/L (98-107) H 10/21/18 04:09 Carbon Dioxide 21 mmol/L (22-30) L 10/21/18 04:09 Anion Gap 19 mmol/L 10/21/18 04:09 BUN 33 mg/dL (9-20) H 10/21/18 04:09 Creatinine 1.6 mg/dL (0.8-1.5) H 10/21/18 04:09 Estimated GFR 41 ml/min 10/21/18 04:09 BUN/Creatinine Ratio 21 % 10/21/18 04:09 Glucose 157 mg/dL (75-100) H 10/21/18 04:09 POC Glucose 204 (70-105) H 10/22/18 11:29 Hemoglobin A1c 8.0 % (4-6) H 10/20/18 07:04 Calcium 8.9 mg/dL (8.4-10.2) 10/21/18 04:09 Total Bilirubin 0.40 mg/dL (0.1-1.2) 10/18/18 20:17 AST 11 units/L (5-40) 10/18/18 20:17 ALT 9 units/L (7-56) 10/18/18 20:17 Alkaline Phosphatase 90 units/L (35-129) 10/18/18 20:17 Total Creatine Kinase 48 units/L (55-170) L 10/18/18 20:17 CK-MB (CK-2) 1.4 ng/mL (0.0-4.0) 10/18/18 20:17 CK-MB (CK-2) Rel Index 2.9 (0-4) 10/18/18 20:17 Troponin T < 0.010 ng/mL (0.00-0.029) 10/18/18 20:17 Total Protein 7.2 g/dL (6.3-8.2) 10/18/18 20:17 Albumin 4.1 g/dL (3.9-5) 10/18/18 20:17 Albumin/Globulin Ratio 1.3 % 10/18/18 20:17 Urine Color Ce (Yellow) 10/18/18 19:39 Urine Turbidity Cloudy (Clear) 10/18/18 19:39 Urine pH 5.0 (5.0-7.0) 10/18/18 19:39 Ur Specific [place] 1.029 (1.003-1.030) 10/18/18 19:39 Urine Protein 100 mg/dl mg/dL (Negative) 10/18/18 19:39 Urine Glucose (UA) >=500 mg/dL (Negative) 10/18/18 19:39 Urine Ketones Tr mg/dL (Negative) 10/18/18 19:39 Urine Blood Mod (Negative) 10/18/18 19:39 Urine Nitrite Pos (Negative) 10/18/18 19:39 Urine Bilirubin Neg (Negative) 10/18/18 19:39 Urine Urobilinogen 2.0 mg/dL (<2.0) 10/18/18 19:39 Ur Leukocyte Esterase Lg (Negative) 10/18/18 19:39 Urine WBC (Auto) 179.0 /HPF (0.0-6.0) H 10/18/18 19:39 Urine RBC (Auto) 47.0 /HPF (0.0-6.0) 10/18/18 19:39 U Epithel Cells (Auto) 1.0 /HPF (0-13.0) 10/18/18 19:39 Urine Bacteria (Auto) 4+ /HPF (Negative) 10/18/18 19:39 Ur Transition Epith Cell 1 /HPF 10/18/18 19:39 Urine Mucus 2+ /HPF 10/18/18 19:39
[2018-10-23] MEDS: HumaLOG SUB-Q SCH ×4 (07:53→22:32)
[2018-10-23] MEDS: LANTUS SUB-Q SCH ×2 (09:30→22:30)
[2018-10-23] MEDS: COREG PO SCH ×2 (09:45→22:31)
[2018-10-23] MEDS: NORVASC PO SCH (09:45)
[2018-10-23] MEDS: COLACE PO SCH ×2 (09:45→22:31)
[2018-10-23] MEDS: ROCEPHIN/NS 1 GM/50 ML 1 GM/50 ML BAG IV SCH (09:46)
[2018-10-23] MEDS: SODIUM CHLORIDE FLUSH SYRINGE 10 ML IV SCH ×2 (09:46→22:33)
[2018-10-23] MEDS: HEPARIN SUB-Q SCH ×2 (09:54→22:32)
--- NOTE | 2018-10-23 16:45 | Progress Note ---
Assessment and Plan - Patient Problems (1) Normal pressure hydrocephalus Current Visit: Yes Status: Acute Plan to address problem: Patient normal pressure hydrocephalus did not get any worse. Stable currently being evaluated for [facility]ci placement for rehabilitation to become strong in his legs with his balance. (2) UTI (urinary tract infection) Current Visit: Yes Status: Acute Plan to address problem: Continue Rocephin improving. No fever. Fever curve is coming down. Leukocytosis resolved. improved. History Interval history: Patient complains today of back pain. Patient states the pain he typically has while he is at home. Patient currently hospital for normal pressure hydrocephalus. Awaiting outpatient placement. Rehabilitation. Hospitalist Physical - Constitutional Vitals: Temp Pulse Resp BP Pulse Ox 98.2 F 65 20 108/55 97 10/23/18 13:52 10/23/18 13:52 10/23/18 13:52 10/23/18 13:52 10/23/18 13:52 General appearance: Present: no acute distress, well-nourished - EENT Eyes: Present: PERRL, EOM intact. Absent: scleral icterus, conjunctival injection, exopthalmos ENT: hearing intact, clear oral mucosa, dentition normal, no oropharyngeal erythema, no poor dentition - Neck Neck: Present: supple, normal ROM. Absent: enlarged thyroid, masses or JVD, cervical LAD - Respiratory Respiratory effort: normal Respiratory: bilateral: CTA - Cardiovascular Rhythm: regular Heart Sounds: Present: S1 & S2 - Extremities Extremities: no ischemia, pulses intact, pulses symmetrical Peripheral Pulses: within normal limits - Abdominal General gastrointestinal: soft, non-tender, non-distended - Integumentary Integumentary: Present: clear, warm, dry. Absent: jaundice, rash, clammy - Psychiatric Psychiatric: appropriate mood/affect - Neurologic Neurologic: CNII-XII intact, focal deficits Results - Labs CBC & Chem 7: 10/20/18 07:04 10/21/18 04:09 Labs: Laboratory Last Values WBC 7.4 K/mm3 (4.5-11.0) 10/20/18 07:04 RBC 4.30 M/mm3 (3.65-5.03) 10/20/18 07:04 Hgb 13.0 gm/dl (11.8-15.2) 10/20/18 07:04 Hct 38.0 % (35.5-45.6) 10/20/18 07:04 MCV 89 fl (84-94) 10/20/18 07:04 MCH 30 pg (28-32) 10/20/18 07:04 MCHC 34 % (32-34) 10/20/18 07:04 RDW 14.3 % (13.2-15.2) 10/20/18 07:04 Plt Count 225 K/mm3 (140-440) 10/20/18 07:04 Lymph % (Auto) 19.5 % (13.4-35.0) 10/20/18 07:04 [place] % (Auto) 9.6 % (0.0-7.3) H 10/20/18 07:04 Eos % (Auto) 5.0 % (0.0-4.3) H 10/20/18 07:04 Baso % (Auto) 1.1 % (0.0-1.8) 10/20/18 07:04 Lymph # 1.5 K/mm3 (1.2-5.4) 10/20/18 07:04 [place] # 0.7 K/mm3 (0.0-0.8) 10/20/18 07:04 Eos # 0.4 K/mm3 (0.0-0.4) 10/20/18 07:04 Baso # 0.1 K/mm3 (0.0-0.1) 10/20/18 07:04 Seg Neutrophils % 64.8 % (40.0-70.0) 10/20/18 07:04 Seg Neutrophils # 4.8 K/mm3 (1.8-7.7) 10/20/18 07:04 PT 14.0 Sec. (12.2-14.9) 10/18/18 20:17 INR 1.02 (0.87-1.13) 10/18/18 20:17 APTT 28.7 Sec. (24.2-36.6) 10/18/18 20:17 Thrombin Time 15.3 Sec. (15.1-19.6) 10/18/18 20:17 Sodium 144 mmol/L (137-145) 10/21/18 04:09 Potassium 3.6 mmol/L (3.6-5.0) 10/21/18 04:09 Chloride 107.6 mmol/L (98-107) H 10/21/18 04:09 Carbon Dioxide 21 mmol/L (22-30) L 10/21/18 04:09 Anion Gap 19 mmol/L 10/21/18 04:09 BUN 33 mg/dL (9-20) H 10/21/18 04:09 Creatinine 1.6 mg/dL (0.8-1.5) H 10/21/18 04:09 Estimated GFR 41 ml/min 10/21/18 04:09 BUN/Creatinine Ratio 21 % 10/21/18 04:09 Glucose 157 mg/dL (75-100) H 10/21/18 04:09 POC Glucose 197 (70-105) H 10/23/18 11:38 Hemoglobin A1c 8.0 % (4-6) H 10/20/18 07:04 Calcium 8.9 mg/dL (8.4-10.2) 10/21/18 04:09 Total Bilirubin 0.40 mg/dL (0.1-1.2) 10/18/18 20:17 AST 11 units/L (5-40) 10/18/18 20:17 ALT 9 units/L (7-56) 10/18/18 20:17 Alkaline Phosphatase 90 units/L (35-129) 10/18/18 20:17 Total Creatine Kinase 48 units/L (55-170) L 10/18/18 20:17 CK-MB (CK-2) 1.4 ng/mL (0.0-4.0) 10/18/18 20:17 CK-MB (CK-2) Rel Index 2.9 (0-4) 10/18/18 20:17 Troponin T < 0.010 ng/mL (0.00-0.029) 10/18/18 20:17 Total Protein 7.2 g/dL (6.3-8.2) 10/18/18 20:17 Albumin 4.1 g/dL (3.9-5) 10/18/18 20:17 Albumin/Globulin Ratio 1.3 % 10/18/18 20:17 Urine Color Ce (Yellow) 10/18/18 19:39 Urine Turbidity Cloudy (Clear) 10/18/18 19:39 Urine pH 5.0 (5.0-7.0) 10/18/18 19:39 Ur Specific [place] 1.029 (1.003-1.030) 10/18/18 19:39 Urine Protein 100 mg/dl mg/dL (Negative) 10/18/18 19:39 Urine Glucose (UA) >=500 mg/dL (Negative) 10/18/18 19:39 Urine Ketones Tr mg/dL (Negative) 10/18/18 19:39 Urine Blood Mod (Negative) 10/18/18 19:39 Urine Nitrite Pos (Negative) 10/18/18 19:39 Urine Bilirubin Neg (Negative) 10/18/18 19:39 Urine Urobilinogen 2.0 mg/dL (<2.0) 10/18/18 19:39 Ur Leukocyte Esterase Lg (Negative) 10/18/18 19:39 Urine WBC (Auto) 179.0 /HPF (0.0-6.0) H 10/18/18 19:39 Urine RBC (Auto) 47.0 /HPF (0.0-6.0) 10/18/18 19:39 U Epithel Cells (Auto) 1.0 /HPF (0-13.0) 10/18/18 19:39 Urine Bacteria (Auto) 4+ /HPF (Negative) 10/18/18 19:39 Ur Transition Epith Cell 1 /HPF 10/18/18 19:39 Urine Mucus 2+ /HPF 10/18/18 19:39
[2018-10-23] MEDS: TYLENOL PO PRN (16:59)
[2018-10-24] MEDS: HumaLOG SUB-Q SCH ×4 (07:30→22:57)
[2018-10-24] MEDS ORDERED: ULTRAM PO PRN (08:41)
[2018-10-24] MEDS: ROCEPHIN/NS 1 GM/50 ML 1 GM/50 ML BAG IV SCH (09:55)
[2018-10-24] MEDS: COLACE PO SCH ×2 (09:55→21:09)
[2018-10-24] MEDS: COREG PO SCH ×2 (09:56→21:10)
[2018-10-24] MEDS: NORVASC PO SCH (09:56)
[2018-10-24] MEDS: COZAAR PO SCH (09:56)
[2018-10-24] MEDS: HEPARIN SUB-Q SCH ×2 (10:02→21:35)
[2018-10-24] MEDS: LANTUS SUB-Q SCH ×2 (10:02→22:57)
[2018-10-24] MEDS: SODIUM CHLORIDE FLUSH SYRINGE 10 ML IV SCH ×2 (10:04→21:14)
--- NOTE | 2018-10-24 10:39 | Progress Note ---
Assessment and Plan - Patient Problems (1) Normal pressure hydrocephalus Current Visit: Yes Status: Acute Plan to address problem: Patient normal pressure hydrocephalus Remained stable. In fact has had some improvemen Stable currently being evaluated for [facility] placement for rehabilitation to become strong in his legs with his balance. (2) UTI (urinary tract infection) Current Visit: Yes Status: Acute Plan to address problem: Currently stable patient afebrile. Microbiology negative. Will change medications to PO. (3) Diabetes Current Visit: Yes Status: Acute Plan to address problem: Patient maintains fair control of diabetes. No acute changes this time. History Interval history: Back pain improved with medications. Patient did not ask for medications over PM Hospitalist Physical - Constitutional Vitals: Temp Pulse Resp BP Pulse Ox 97.9 F 61 16 160/73 96 10/24/18 07:27 10/24/18 09:56 10/24/18 07:27 10/24/18 09:56 10/24/18 07:27 General appearance: Present: no acute distress, well-nourished - EENT Eyes: Present: PERRL, EOM intact ENT: hearing intact, clear oral mucosa, dentition normal - Neck Neck: Present: supple, normal ROM - Respiratory Respiratory effort: normal Respiratory: bilateral: CTA - Cardiovascular Rhythm: regular - Extremities Extremities: no ischemia, pulses intact, No edema, normal temperature Peripheral Pulses: within normal limits - Abdominal General gastrointestinal: soft, non-tender, non-distended, normal bowel sounds - Integumentary Integumentary: Present: clear, warm, dry - Psychiatric Psychiatric: appropriate mood/affect, intact judgment & insight, memory intact - Neurologic Neurologic: CNII-XII intact Results - Labs CBC & Chem 7: 10/20/18 07:04 10/21/18 04:09 Labs: Laboratory Last Values WBC 7.4 K/mm3 (4.5-11.0) 10/20/18 07:04 RBC 4.30 M/mm3 (3.65-5.03) 10/20/18 07:04 Hgb 13.0 gm/dl (11.8-15.2) 10/20/18 07:04 Hct 38.0 % (35.5-45.6) 10/20/18 07:04 MCV 89 fl (84-94) 10/20/18 07:04 MCH 30 pg (28-32) 10/20/18 07:04 MCHC 34 % (32-34) 10/20/18 07:04 RDW 14.3 % (13.2-15.2) 10/20/18 07:04 Plt Count 225 K/mm3 (140-440) 10/20/18 07:04 Lymph % (Auto) 19.5 % (13.4-35.0) 10/20/18 07:04 [place] % (Auto) 9.6 % (0.0-7.3) H 10/20/18 07:04 Eos % (Auto) 5.0 % (0.0-4.3) H 10/20/18 07:04 Baso % (Auto) 1.1 % (0.0-1.8) 10/20/18 07:04 Lymph # 1.5 K/mm3 (1.2-5.4) 10/20/18 07:04 [place] # 0.7 K/mm3 (0.0-0.8) 10/20/18 07:04 Eos # 0.4 K/mm3 (0.0-0.4) 10/20/18 07:04 Baso # 0.1 K/mm3 (0.0-0.1) 10/20/18 07:04 Seg Neutrophils % 64.8 % (40.0-70.0) 10/20/18 07:04 Seg Neutrophils # 4.8 K/mm3 (1.8-7.7) 10/20/18 07:04 PT 14.0 Sec. (12.2-14.9) 10/18/18 20:17 INR 1.02 (0.87-1.13) 10/18/18 20:17 APTT 28.7 Sec. (24.2-36.6) 10/18/18 20:17 Thrombin Time 15.3 Sec. (15.1-19.6) 10/18/18 20:17 Sodium 144 mmol/L (137-145) 10/21/18 04:09 Potassium 3.6 mmol/L (3.6-5.0) 10/21/18 04:09 Chloride 107.6 mmol/L (98-107) H 10/21/18 04:09 Carbon Dioxide 21 mmol/L (22-30) L 10/21/18 04:09 Anion Gap 19 mmol/L 10/21/18 04:09 BUN 33 mg/dL (9-20) H 10/21/18 04:09 Creatinine 1.6 mg/dL (0.8-1.5) H 10/21/18 04:09 Estimated GFR 41 ml/min 10/21/18 04:09 BUN/Creatinine Ratio 21 % 10/21/18 04:09 Glucose 157 mg/dL (75-100) H 10/21/18 04:09 POC Glucose 79 (70-105) 10/24/18 07:23 Hemoglobin A1c 8.0 % (4-6) H 10/20/18 07:04 Calcium 8.9 mg/dL (8.4-10.2) 10/21/18 04:09 Total Bilirubin 0.40 mg/dL (0.1-1.2) 10/18/18 20:17 AST 11 units/L (5-40) 10/18/18 20:17 ALT 9 units/L (7-56) 10/18/18 20:17 Alkaline Phosphatase 90 units/L (35-129) 10/18/18 20:17 Total Creatine Kinase 48 units/L (55-170) L 10/18/18 20:17 CK-MB (CK-2) 1.4 ng/mL (0.0-4.0) 10/18/18 20:17 CK-MB (CK-2) Rel Index 2.9 (0-4) 10/18/18 20:17 Troponin T < 0.010 ng/mL (0.00-0.029) 10/18/18 20:17 Total Protein 7.2 g/dL (6.3-8.2) 10/18/18 20:17 Albumin 4.1 g/dL (3.9-5) 10/18/18 20:17 Albumin/Globulin Ratio 1.3 % 10/18/18 20:17 Urine Color Ce (Yellow) 10/18/18 19:39 Urine Turbidity Cloudy (Clear) 10/18/18 19:39 Urine pH 5.0 (5.0-7.0) 10/18/18 19:39 Ur Specific [place] 1.029 (1.003-1.030) 10/18/18 19:39 Urine Protein 100 mg/dl mg/dL (Negative) 10/18/18 19:39 Urine Glucose (UA) >=500 mg/dL (Negative) 10/18/18 19:39 Urine Ketones Tr mg/dL (Negative) 10/18/18 19:39 Urine Blood Mod (Negative) 10/18/18 19:39 Urine Nitrite Pos (Negative) 10/18/18 19:39 Urine Bilirubin Neg (Negative) 10/18/18 19:39 Urine Urobilinogen 2.0 mg/dL (<2.0) 10/18/18 19:39 Ur Leukocyte Esterase Lg (Negative) 10/18/18 19:39 Urine WBC (Auto) 179.0 /HPF (0.0-6.0) H 10/18/18 19:39 Urine RBC (Auto) 47.0 /HPF (0.0-6.0) 10/18/18 19:39 U Epithel Cells (Auto) 1.0 /HPF (0-13.0) 10/18/18 19:39 Urine Bacteria (Auto) 4+ /HPF (Negative) 10/18/18 19:39 Ur Transition Epith Cell 1 /HPF 10/18/18 19:39 Urine Mucus 2+ /HPF 10/18/18 19:39
[2018-10-24] MEDS: LEVAQUIN PO SCH (12:41)
[2018-10-24] MEDS: TYLENOL PO PRN (19:27)
[2018-10-25] MEDS: HumaLOG SUB-Q SCH ×2 (07:57→11:50)
[2018-10-25] MEDS: LANTUS SUB-Q SCH (09:55)
[2018-10-25] MEDS: NORVASC PO SCH (09:56)
[2018-10-25] MEDS: COLACE PO SCH (09:57)
[2018-10-25] MEDS: COREG PO SCH (09:57)
[2018-10-25] MEDS: COZAAR PO SCH (09:57)
[2018-10-25] MEDS ORDERED: LEVAQUIN PO SCH (10:00)
[2018-10-25] MEDS: HEPARIN SUB-Q SCH (10:12)
[2018-10-25 10:15] VITALS: BP 157/77
[2018-10-25] MEDS: SODIUM CHLORIDE FLUSH SYRINGE 10 ML IV SCH (10:15)
[2018-10-25] MEDS: LEVAQUIN PO SCH (11:51)
--- NOTE | 2018-10-25 13:21 | Discharge Summary ---
Providers - Providers Date of Admission: 10/19/18 00:08 Date of discharge: 10/25/18 Attending physician: BLAYNE OWUSU MD 10/18/18 21:29 Consult to Physician [CONS] Stat Comment: jesus sánchez [id number] Consulting Provider: NISHA OROZCO Physician Instructions: Reason For Exam: possible normal pressure hydrocephalus 10/19/18 14:05 Physical Therapy Evaluation and Treat [CONS] Routine Comment: Reason For Exam: generalized weakness Primary care physician: SUKHJINDER DOVE Hospitalization Reason for admission: Normal Pressure Hydrocephalus, UTI Condition: Stable Pertinent studies: CT head MRI head IMPRESSION: 1. 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 2. Moderate frontotemporal cortical atrophy. 3. No evidence of acute/subacute infarct or hemorrhage. 4. Chronic right mastoiditis and mild bilateral ethmoid sinusitis. Hospital course: patient was admitted with NPH and UTI after the patient was presented with wobbly gait, incontinence annd confusion. Patient was treated with IV antibiotics and fluid restriction. Neurology saw the patient and recommend O/P neurology f/u. Currently the patient's symptoms are controlled and no need of intervention and if symptoms are getting worse his neurologist may refer him to neurosurgeon for possible shunt. His gait problems resolved and PT saw him and recommend to have home PT. Confusion and incontinence resolved. management plan was explained to the patient and family and discharged home in a stable condition. Patient will follow with Dr Hood (Neurologist) and Dr Latham (Urologist). Disposition: DC-01 TO HOME OR SELFCARE Time spent for discharge: 32 minutes - Discharge Diagnoses (1) Altered mental status Status: Acute (2) Diabetes Status: Chronic Qualifiers: Diabetes mellitus type: type 2 Diabetes mellitus complication status: without complication (3) Normal pressure hydrocephalus Status: Acute (4) UTI (urinary tract infection) Status: Acute Core Measure Documentation - Palliative Care Palliative Care/ Comfort Measures: Not Applicable - Core Measures Any of the following diagnoses?: none Exam - Physical Exam Narrative exam: Not in cardiopulmonary distress. The patient appeared well nourished and normally developed. Vital signs as documented. Head exam is unremarkable. No scleral icterus . Neck is without jugular venous distension, thyromegaly, or carotid bruits. Lungs are clear to auscultation. Cardiac exam reveals regular rate and Rhythm. First and second heart sounds normal. No murmurs, rubs or gallops. Abdominal exam reveals normal bowel sounds, no masses, no organomegaly and no aortic enlargement. Extremities are nonedematous and both femoral and pedal pulses are normal. 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 No focal weakness. - Constitutional Vitals: Temp Pulse Resp BP Pulse Ox 97.4 F L 68 18 157/77 98 10/25/18 07:34 10/25/18 10:00 10/25/18 10:00 10/25/18 09:57 10/25/18 10:00 Plan Activity: advance as tolerated Weight Bearing Status: Weight Bear as Tolerated Diet: diabetic Follow up with: DEREK GALVZE MD [Staff Physician] - 3-5 Days AMY HOOD MD [Staff Physician] - 7 Days SHARYN LATHAM MD [Staff Physician] - 7 Days
== END 2018-10-25 15:00 | disposition home or self-care (01) | DRG 56 ==
LOC: ED 19:14 → 2B-ACE 10-19 00:08
PROVIDERS: ADMIT Internal Medicine; ATTEND Internal Medicine
PROC: [UNRECOGNIZED PROCEDURE] (principal; 2018-10-22)
DX: G91.2 (Idiopathic) normal pressure hydrocephalus (principal); G93.41 Metabolic encephalopathy; N39.0 Urinary tract infection, site not specified; E11.65 Type 2 diabetes mellitus with hyperglycemia; N18.3 Chronic kidney disease, stage 3 (moderate); E11.22 Type 2 diabetes mellitus with diabetic chronic kidney disease; I12.9 Hypertensive chronic kidney disease with stage 1 through stage 4 chronic kidney disease, or unspecified chronic kidney disease; F03.90 Unspecified dementia, unspecified severity, without behavioral disturbance, psychotic disturbance, mood disturbance, and anxiety; Z90.89 Acquired absence of other organs; Z79.4 Long term (current) use of insulin; Z79.899 Other long term (current) drug therapy
CPT/HCPCS: 36415; 70450; 70551; 80048; 80053; 81001; 82550; 82553; 82962; 83036; 84484; 85025; 85610; 85670; 85730; 87040; 87086; 87186; 96374; G0378; J0696; J1644; J1815; J1956; J7030

== ENCOUNTER 2018-11-02 06:46 | Day surgery (SDC) | payer MEDICARE ==
[2018-11-02 07:48] LABS: Basophils # (Auto) 0.1 K/mm3 (0.0-0.1); Basophils % (Auto) 1.3 % (0.0-1.8); Eosinophils # (Auto) 0.4 K/mm3 (0.0-0.4); Eosinophils % (Auto) 6.7 % (0.0-4.3); Hematocrit 34.3 % (35.5-45.6); Hemoglobin 11.5 gm/dl (11.8-15.2); Lymphocytes # (Auto) 1.1 K/mm3 (1.2-5.4); Lymphocytes % (Auto) 19.3 % (13.4-35.0); Mean Corpuscular HGB Conc 33 % (32-34); Mean Corpuscular Volume 89 fl (84-94); Monocytes # (Auto) 0.6 K/mm3 (0.0-0.8); Monocytes % (Auto) 9.7 % (0.0-7.3); Platelet Count 206 K/mm3 (140-440); Red Blood Count 3.84 M/mm3 (3.65-5.03); Red Cell Distribution Width 15.1 % (13.2-15.2)
[2018-11-02 07:57] LABS: INR 0.91 (0.87-1.13)
[2018-11-02 07:58] LABS: Partial Thromboplastin Time 25.9 Sec. (24.2-36.6)
[2018-11-02] MEDS ORDERED: XYLOCAINE 1% 20 mL ONE (08:11)
[2018-11-02 09:16] LABS: Calcium 8.9 mg/dL (8.4-10.2)
--- NOTE | 2018-11-02 09:27 | Short Stay Summary ---
Short Stay Documentation Date of service: 11/02/18 Narrative H&P: headaches - History Principal diagnosis: headaches, intracranial hypertension - Allergies and Medications Current Medications: Allergies Iodinated Contrast- Oral and IV Dye [Iodinated Contrast Media - IV Dye] Allergy (Verified 10/26/18 08:58) Itching levofloxacin [From Levaquin] Allergy (Verified 10/26/18 08:58) Swelling MADE LIPS PUFFY ADHESIVE TAPE Adverse Reaction (Mild, Uncoded 10/26/18 08:58) PEELS SKIN OFF PAPER TAPE OK Home Medications Medication Instructions Recorded Confirmed Last Taken Type Donepezil [Aricept] 5 mg PO HS 07/01/18 11/02/18 11/01/18 History 5mg Gabapentin [Neurontin] 300 mg PO DAILY 07/01/18 11/02/18 11/01/18 History 300mg Gabapentin [Neurontin] 600 mg PO HS 07/01/18 11/02/18 11/01/18 History 600mg Ozempic 1 mg SQ 1XW 10/19/18 11/02/18 10/19/18 History 1mg Pioglitazone 15 mg PO DAILY 10/19/18 11/02/18 11/01/18 History 15mg Docusate Sodium [Stool Softener] 100 mg PO HS 11/02/18 11/02/18 11/01/18 History 100mg Hydralazine HCl 50 mg PO DAILY 11/02/18 11/02/18 11/01/18 History 50mg Losartan Potassium [Cozaar] 50 mg PO QPM 11/02/18 11/02/18 11/01/18 History 50mg Pioglitazone HCl 15 mg PO QAM 11/02/18 11/02/18 11/01/18 History 15mg Tapentadol HCl [Nucynta ER] 150 mg PO Q12H PRN 11/02/18 11/02/18 10/19/18 History 150mg cloNIDine [Catapres] 0.1 mg PO BID 11/02/18 11/02/18 11/01/18 History 0.1mg hydroCHLOROthiazide [HCTZ] 25 mg PO PRN PRN 11/02/18 11/02/18 10/19/18 History 25mg - Physical exam General appearance: no acute distress Extremities: no ischemia, No edema, normal temperature - Brief post op/procedure progress note Date of procedure: 11/02/18 Pre-op diagnosis: headache, intracranial hypertension Post-op diagnosis: same Procedure: flouro guided lumbar puncture Anesthesia: local Findings: none Surgeon: CRISTAL TRUJILLO Estimated blood loss: none Pathology: list (4 csf tubes) Specimen disposition: to lab Condition: stable - Hospital course Hospital course: uneventful - Disposition Condition at discharge: Good Disposition: DC-01 TO HOME OR SELFCARE Short Stay Discharge Plan Follow up with: SUKHJINDER DOVE MD [Primary Care Provider] - 7 Days
[2018-11-02] MEDS ORDERED: CATAPRES PO ONE (10:30)
[2018-11-02 10:38] LABS: Appearance,CSF Clear
[2018-11-02 10:39] LABS: Basophils CSF 0 %; Red Blood Cell,CSF 22 /mm3 (0-0); Total Cells Counted 1 /mm3; White Blood Cell,CSF 1 /mm3 (1-10)
[2018-11-02 11:08] VITALS: BP 124/72
[2018-11-02 13:19] LABS: Glucose,CSF 133 mg/dL
--- NOTE | 2018-11-02 13:19 | Fluoroscopy Report ---
FLUOROSCOPY LUMBAR PUNCTURE History: Normal pressure hydrocephalus Description of procedure: Informed consent was obtained. Sterile technique was utilized. 1% lidocaine for skin anesthesia. Using fluoroscopy guidance, lumbar puncture was performed at the L3-4 level. One fluoroscopic image was saved. There was spontaneous return of clear CSF. The opening pressure was mildly elevated measuring 18 cm of water. Approximately 25 cc of CSF fluid was collected per the ordering physician's request. Samples were sent to the lab for analysis. The patient tolerated the procedure without difficulty. Impression: Successful fluoroscopy guided lumbar puncture.
== END 2018-11-02 11:30 | disposition home or self-care (01) ==
LOC: CATHLABREC 06:46 → EDSTATUS 07:00 → CATHLABREC 11:30
PROVIDERS: ATTEND Psychiatry & Neurology Neurology
DX: G91.2 (Idiopathic) normal pressure hydrocephalus (principal); E11.9 Type 2 diabetes mellitus without complications; I10 Essential (primary) hypertension; G47.30 Sleep apnea, unspecified; K21.9 Gastro-esophageal reflux disease without esophagitis; M19.90 Unspecified osteoarthritis, unspecified site; Z87.442 Personal history of urinary calculi; Z72.89 Other problems related to lifestyle; Z79.84 Long term (current) use of oral hypoglycemic drugs; Z79.899 Other long term (current) drug therapy; Z91.041 Radiographic dye allergy status; Z85.51 Personal history of malignant neoplasm of bladder; Z87.440 Personal history of urinary (tract) infections; Z98.42 Cataract extraction status, left eye; Z98.41 Cataract extraction status, right eye; Z98.890 Other specified postprocedural states; Z85.46 Personal history of malignant neoplasm of prostate; Z79.01 Long term (current) use of anticoagulants; Z88.8 Allergy status to other drugs, medicaments and biological substances
CPT/HCPCS: 36415; 62270; 77003; 80048; 82947; 84160; 85025; 85610; 85730; 89051

== ENCOUNTER 2018-12-02 08:43 | Day surgery (SDC) | payer MEDICARE ==
[2018-12-02] MEDS ORDERED: XYLOCAINE 1% 20 mL ONE (10:16)
[2018-12-02 10:54] LABS: INR 0.95 (0.87-1.13)
[2018-12-02 10:55] LABS: Partial Thromboplastin Time 23.3 Sec. (24.2-36.6)
--- NOTE | 2018-12-02 12:21 | Fluoroscopy Report ---
FLUOROSCOPY LUMBAR PUNCTURE History: Normal pressure hydrocephalus. Description of procedure: Informed consent was obtained. Sterile technique was utilized. 1% lidocaine for skin anesthesia. One fluoroscopic image was saved. Using fluoroscopic guidance, a spinal needle was advanced into the thecal sac at the L3-4 level. There was spontaneous return of clear yellow fluid. The opening pressure measured 15 cm of water. A total of 23 cc of CSF was collected in 4 tubes. Samples were sent to the lab for analysis. Impression: Successful fluoroscopy guided lumbar puncture as described.
--- NOTE | 2018-12-02 12:24 | Short Stay Summary ---
Short Stay Documentation Date of service: 12/02/18 - History Principal diagnosis: Normal Pressure Hydrocephalus Past Medical History: migraines Past Surgical History: Other (lumbar fusion) Social history: no significant social history - Allergies and Medications Current Medications: Allergies Iodinated Contrast- Oral and IV Dye [Iodinated Contrast Media - IV Dye] Allergy (Intermediate, Verified 12/02/18 09:50) Itching levofloxacin [From Levaquin] Allergy (Intermediate, Verified 12/02/18 09:50) Swelling MADE LIPS PUFFY ADHESIVE TAPE Adverse Reaction (Mild, Uncoded 10/26/18 08:58) PEELS SKIN OFF PAPER TAPE OK Home Medications Medication Instructions Recorded Confirmed Last Taken Type Donepezil [Aricept] 5 mg PO HS 07/01/18 12/02/18 12/01/18 History Gabapentin [Neurontin] 300 mg PO QAM 07/01/18 12/02/18 12/01/18 History Gabapentin [Neurontin] 600 mg PO HS 07/01/18 11/02/18 12/01/18 History Ozempic 1 mg SQ 1XW 10/19/18 11/02/18 10/19/18 History 1mg Pioglitazone 15 mg PO DAILY 10/19/18 12/02/18 12/01/18 History Docusate Sodium [Stool Softener] 100 mg PO HS 11/02/18 12/02/18 11/01/18 History 100mg Hydralazine HCl 50 mg PO DAILY 11/02/18 12/02/18 12/01/18 History Losartan Potassium [Cozaar] 50 mg PO QPM 11/02/18 12/02/18 12/01/18 History Pioglitazone HCl 15 mg PO QAM 11/02/18 12/02/18 12/01/18 History Tapentadol HCl [Nucynta ER] 150 mg PO Q12H PRN 11/02/18 12/02/18 10/19/18 History 150mg cloNIDine [Catapres] 0.1 mg PO BID 11/02/18 12/02/18 12/01/18 History hydroCHLOROthiazide [HCTZ] 25 mg PO PRN PRN 11/02/18 12/02/18 10/19/18 History 25mg - Physical exam General appearance: no acute distress Extremities: no ischemia, pulses intact, normal temperature Neurological: Normal speech, Sensation intact - Brief post op/procedure progress note Date of procedure: 12/02/18 Pre-op diagnosis: normal pressure hydrocephalus Post-op diagnosis: same Procedure: Flouro guided lumbar puncture Anesthesia: local Findings: opening pressure 15 cm of water Surgeon: CRISTAL TRUJILLO Estimated blood loss: none Pathology: list (4 tubes, 23cc of fluid) Specimen disposition: to lab Condition: stable - Hospital course Hospital course: uneventful - Disposition Condition at discharge: Good Disposition: DC-01 TO HOME OR SELFCARE Short Stay Discharge Plan Follow up with: SUKHJINDER DOVE MD [Primary Care Provider] - 7 Days
[2018-12-02 12:59] LABS: Glucose,CSF 121 mg/dL
[2018-12-02 13:41] LABS: Appearance,CSF Clear
[2018-12-02 13:42] LABS: Basophils CSF 0 %; Red Blood Cell,CSF 1 /mm3 (0-0); Total Cells Counted 1 /mm3; White Blood Cell,CSF 1 /mm3 (1-10)
[2018-12-02 14:46] VITALS: BP 164/90
== END 2018-12-02 13:00 | disposition home or self-care (01) ==
LOC: CATHLABREC 08:43 → EDSTATUS 09:00 → CATHLABREC 13:00
PROVIDERS: ATTEND Psychiatry & Neurology Neurology
DX: G91.2 (Idiopathic) normal pressure hydrocephalus (principal); I12.9 Hypertensive chronic kidney disease with stage 1 through stage 4 chronic kidney disease, or unspecified chronic kidney disease; E11.22 Type 2 diabetes mellitus with diabetic chronic kidney disease; N18.3 Chronic kidney disease, stage 3 (moderate); M19.90 Unspecified osteoarthritis, unspecified site; G47.30 Sleep apnea, unspecified; K21.9 Gastro-esophageal reflux disease without esophagitis; F32.9 Major depressive disorder, single episode, unspecified; Z72.89 Other problems related to lifestyle; Z91.040 Latex allergy status; Z79.899 Other long term (current) drug therapy; Z87.440 Personal history of urinary (tract) infections; Z85.51 Personal history of malignant neoplasm of bladder; Z98.41 Cataract extraction status, right eye; Z98.42 Cataract extraction status, left eye; Z85.46 Personal history of malignant neoplasm of prostate; Z87.442 Personal history of urinary calculi; Z98.890 Other specified postprocedural states; Z88.8 Allergy status to other drugs, medicaments and biological substances
CPT/HCPCS: 36415; 62270; 77003; 82947; 84160; 85049; 85610; 85730; 89051